=== PATIENT | male | born 1955 | race Caucasian/White ===

== ENCOUNTER 2018-03-18 10:14 | Emergency (ER) | payer OTHER, SELFPAY ==
[2018-03-18 10:23] VITALS: BP 129/75; PULSE 103; RESP 20; TEMP 37.1; O2SAT 96
[2018-03-18 11:54] LABS: Add Manual Diff / Slide Review NO; Basophils Percent Auto 0.2 % (0-2); Eosinophils Percent Auto 0.3 % (2-4); Hematocrit 37.9 % (41-53); Lymphocytes Percent Auto 8.9 % (25-40); Mean Corpuscular HGB Conc 34.3 % (30-36); Monocytes Percent Auto 15.1 % (3-14); Neutrophils Absolute Auto 5300 /uL (3000-5900); Neutrophils Percent Auto 75.5 % (50-75); Platelet Count 262 X10^3/uL (150-400); Red Blood Cell Count 3.95 X10^6/uL (4.5-5.9); Red Cell Distribution Width 13.6 % (11.6-14.8)
[2018-03-18 11:57] VITALS: BP 118/64; PULSE 85; RESP 16; TEMP 36.7; O2SAT 96
[2018-03-18 12:00] LABS: Bacteria Urine None Seen
[2018-03-18 12:07] LABS: Alanine Aminotransferase 137 IU/L (21-72); Albumin 3.8 g/dL (3.5-5.0); Albumin Globulin Ratio 1.2 (1.0-2.8); Alkaline Phosphatase 366 U/L (38-126); Aspartate Aminotransferase 128 IU/L (17-59); BUN Creatinine Ratio 17.8 (6-22); Bilirubin Total 3.7 mg/dL (0.2-1.3); Blood Urea Nitrogen 16 mg/dL (9-20); Calcium 9.2 mg/dL (8.4-10.2); Carbon Dioxide 31 mmol/L (22-32); Chloride 99 mmol/L (98-107); Estimated Glomerular Filt Rate > 60.0 mL/min (>60); Globulin 3.3 g/dL (1.7-4.1); Glucose 115 mg/dL (80-110); HEMOLYSIS < 15 (0-50); Sodium 141 mmol/L (137-145); Total Protein 7.1 g/dL (6.3-8.2)
[2018-03-18 12:12] LABS: RBC Urine 10-30/HPF (0-5/HPF)
[2018-03-18 12:13] LABS: Culture Indicated Urine Specimen Cultured; WBC Urine 5-10/HPF (0-5/HPF)
[2018-03-18 12:33] LABS: Prothrombin Time 91.6 SECONDS (10.1-12.7)
[2018-03-18 12:39] LABS: INR 8.1 (0.9-1.3)
--- NOTE | 2018-03-18 13:09 | ED_ITS ---
HPI - Recheck/Abnormal Lab/Rx General Chief Complaint: Recheck/Abnormal Lab/Rx Stated Complaint: INR OVER 8,PEEING BLOOD Time Seen by Provider: 03/18/18 13:09 Source: patient and family Mode of arrival: ambulatory Limitations: no limitations History of Present Illness HPI narrative: This is a 62-year-old gentleman who comes to the emergency department with complaint of elevated INR. Patient states Um that he had his INR checked last week it was slightly elevated but on recheck today was 8.1. Patient states that he did have a new change in his statin and was changed from pravastatin to atorvastatin in the last couple days or week. Otherwise no other new medication changes. He is on chemo for cancer which he gets regularly for the past 3 years. He also has had some mild headaches, no vision changes. No nausea or vomiting. No new GI or urinary issues. He has had a little bit of abdominal discomfort. He has also noticed a little bit of blood in his urine. No black or bloody stools. Patient normally has a standing order for INR checks at [facility]. He denies any chest pain or shortness of breath. He has not had any major changes with bruising or skin discoloration Related Data Home Medications Medication Instructions Recorded Confirmed nivolumab [Opdivo] 1 dose IV EVERY 2 WEEK #0 05/07/17 03/18/18 atorvastatin 80 mg PO BEDTIME 03/18/18 03/18/18 famotidine 20 mg PO BID 03/18/18 03/18/18 lisinopril 10 mg PO DAILY 03/18/18 03/18/18 kiskosdy-njn-NA-lycopen-lutein 1 tab PO QPM 03/18/18 03/18/18 [Centrum Silver] warfarin 6 mg PO DAILY 03/18/18 03/18/18 Allergies Allergy/AdvReac Type Severity Reaction Status Date / Time Znrggtn-Zgt-Zmt Reductase Allergy Unknown Unverified 10/07/17 12:01 Inhibitor [PKZTSOY-AEC-AYT REDUCTASE INHIBITOR] Review of Systems Review of Systems All systems reviewed & are unremarkable except as noted in HPI and below Constitutional Reports headache(s) (Mild), Reports poor appetite and Denies weakness ENT Ears, Nose, Mouth, and Throat: Reports headache(s) (Mild) Cardiovascular Denies chest pain, Denies irregular heart rhythm, Denies lightheadedness, Denies palpitations, Denies dyspnea, Denies dyspnea on exertion and Denies orthopnea Respiratory Denies cough, Denies dyspnea, Denies dyspnea on exertion and Denies wheezing Gastrointestinal Gastrointestinal: Reports abdominal pain, Denies melena, Reports bloating, Denies hematochezia, Denies change in bowel habits, Denies coffee ground emesis , Denies diarrhea, Denies nausea, Denies vomiting and Denies hematemesis Genitourinary Reports hematuria (No clot) Integumentary/Breasts Reports as per HPI and Denies bleeding lesions Neurologic Reports headache(s) (Mild), Denies focal weakness, Denies sensory deficit and Denies weakness Endocrine Denies palpitations Allergic/Immunologic Denies wheezing [facility] Social History Smoking Status: Current every day smoker Exam Initial Vital Signs Initial Vital Signs: Vital Signs Temperature 98.8 F 03/18/18 10:23 Pulse Rate 103 H 03/18/18 10:23 Respiratory Rate 20 03/18/18 10:23 Blood Pressure 129/75 03/18/18 10:23 Pulse Oximetry 96 03/18/18 10:23 Const General: cooperative and well developed Nutritional Appearance: thin Orientation: alert, awake, oriented x3 and not confused Eyes Conjunctivae: conjunctivae normal Chest Chest: normal inspection of the chest Resp Effort & Inspection: normal respiratory effort, able to speak in complete sentences, no respiratory distress and no use of accessory muscles Auscultation: clear to auscultation bilaterally, no rales, no rhonchi and no wheezes Cardio Rate: regular rate Rhythm: regular rhythm Heart Sounds: no click, no gallops, no murmurs and no rubs Pulses: normal peripheral pulses GI Inspection: normal to inspection, no abdominal wall ecchymosis and distended Palpation: soft, no hepatosplenomegaly, No firm, No guarding, No pulsatile mass , No rigid and No tender Auscultation: normal bowel sounds Skin General: ecchymosis (Patient has 2 very small bruises that are less than a cm in size on his hands. No other signs of bleeding.), No jaundice, No petechiae and No purpura Neuro General: alert, oriented x3, gait normal, no focal motor deficits and CN's II- XI intact bilaterally Cranial Nerves: PERRL and EOM intact bilaterally Cognition: normal cognition Speech: speech normal Motor: muscle tone normal throughout Course Orders Ordered: ED Orders 03/18/18 11:44 Complete Blood Count AUTO DIFF Stat Comprehensive Metabolic Panel Stat Prothrombin Time INR Stat Urine Culture Stat Urine Microscopic Stat 03/18/18 13:11 US abdomen complete Stat 03/18/18 13:45 CT head/brain wo con Stat Discontinued Medications Phytonadione (Mephyton) 5 mg PO NOW ONE Stop: 03/18/18 13:17 Last Admin: 03/18/18 13:26 Dose: 5 mg Vital Signs - 8 hr 03/18/18 14:45 Temperature 97.4 F L Pulse Rate 94 H Respiratory Rate 20 Blood Pressure 136/70 Pulse Oximetry 97 MDM - Recheck/Abnormal Lab/Rx Differential Diagnosis Likely warfarin-induced coagulopathy Lab Data Attestation: I reviewed the patient's lab results. Result diagrams: 03/18/18 11:44 03/18/18 11:44 Lab Results 03/18/18 03/18/18 03/18/18 Range/Units 11:44 11:44 11:44 WBC 7.0 (4.5-11.0) X10^3/uL RBC 3.95 L (4.5-5.9) X10^6/uL Hgb 13.0 L (13.5-17.5) g/dL Hct 37.9 L (41-53) % MCV 96.0 (80-100) fL MCH 33.0 (26-34) PG MCHC 34.3 (30-36) % RDW 13.6 (11.6-14.8) % Plt Count 262 (150-400) X10^3/uL Neut % (Auto) 75.5 H (50-75) % Lymph % (Auto) 8.9 L (25-40) % Dubois % (Auto) 15.1 H (3-14) % Eos % (Auto) 0.3 L (2-4) % Baso % (Auto) 0.2 (0-2) % Neut # (Auto) 5300 (6568-3276) /uL PT 91.6 H (10.1-12.7) SECONDS INR 8.1 H* (0.9-1.3) Sodium 141 (137-145) mmol/L Potassium 4.0 (3.4-5.1) mmol/L Chloride 99 (98-107) mmol/L Carbon Dioxide 31 (22-32) mmol/L BUN 16 (9-20) mg/dL Creatinine 0.90 (0.66-1.25) mg/dL Estimated GFR > 60.0 (>60) mL/min BUN/Creatinine Ratio 17.8 (6-22) Glucose 115 H (80-110) mg/dL Calcium 9.2 (8.4-10.2) mg/dL Total Bilirubin 3.7 H (0.2-1.3) mg/dL AST 128 H (17-59) IU/L ALT 137 H (21-72) IU/L Alkaline Phosphatase 366 H (38-126) U/L Total Protein 7.1 (6.3-8.2) g/dL Albumin 3.8 (3.5-5.0) g/dL Globulin 3.3 (1.7-4.1) g/dL Albumin/Globulin Ratio 1.2 (1.0-2.8) Urine RBC (0-5/HPF) Urine WBC (0-5/HPF) Urine Bacteria (None) Ur Culture Indicated? Micro UA Comment 03/18/18 Range/Units 11:44 WBC (4.5-11.0) X10^3/uL RBC (4.5-5.9) X10^6/uL Hgb (13.5-17.5) g/dL Hct (41-53) % MCV (80-100) fL MCH (26-34) PG MCHC (30-36) % RDW (11.6-14.8) % Plt Count (150-400) X10^3/uL Neut % (Auto) (50-75) % Lymph % (Auto) (25-40) % Dubois % (Auto) (3-14) % Eos % (Auto) (2-4) % Baso % (Auto) (0-2) % Neut # (Auto) (6457-2519) /uL PT (10.1-12.7) SECONDS INR (0.9-1.3) Sodium (137-145) mmol/L Potassium (3.4-5.1) mmol/L Chloride (98-107) mmol/L Carbon Dioxide (22-32) mmol/L BUN (9-20) mg/dL Creatinine (0.66-1.25) mg/dL Estimated GFR (>60) mL/min BUN/Creatinine Ratio (6-22) Glucose (80-110) mg/dL Calcium (8.4-10.2) mg/dL Total Bilirubin (0.2-1.3) mg/dL AST (17-59) IU/L ALT (21-72) IU/L Alkaline Phosphatase (38-126) U/L Total Protein (6.3-8.2) g/dL Albumin (3.5-5.0) g/dL Globulin (1.7-4.1) g/dL Albumin/Globulin Ratio (1.0-2.8) Urine RBC 10-30/hpf H (0-5/HPF) Urine WBC 5-10/hpf H (0-5/HPF) Urine Bacteria None seen (None) Ur Culture Indicated? Specimen cultured Micro UA Comment Not Reportable Imaging Data CT scan - head: Radiologist's impression: Patient: Dequan Rios MR#: [id number] : 1955 Acct:[id number] Age/Sex: 62 / M Date of Service: 03/18/18 Loc: ED Accession Number: [id number] Procedure: CT head/brain wo con Ordering Provider: Juliann Romero D.O. PROCEDURE: CT HEAD/BRAIN WO CON INDICATIONS: INR is 8, mild headaches TECHNIQUE: Noncontrast 4.5 mm thick angled axial sections acquired from the foramen magnum to the vertex, with coronal and sagittal reformats. For radiation dose reduction, the following was used: automated exposure control, adjustment of mA and/or kV according to patient size. COMPARISON: [facility], , MR HEAD WO/W CONTRAST, 11/12/2015, 9: 40 AM. FINDINGS: Image quality: Excellent. CSF spaces: Basal cisterns are patent. No extra-axial fluid collections. The ventricles are symmetric in size and shape. Brain: No intracranial bleeds or masses. Mild loss and encephalomalacia can be seen involving the left frontal lobe. There is cerebral volume loss for age, with resultant ventricular and sulcal prominence. There are periventricular and deep white matter chronic small vessel ischemic changes. There is intracranial internal carotid artery atherosclerosis. Skull and face: Left frontal craniotomy changes are seen, with plate and screw repair. Calvarium and visualized facial bones appear intact, without suspicious lesions. Sinuses: Visualized sinuses and mastoids are clear. IMPRESSION: No acute intracranial hemorrhage. Postoperative change of the left frontal lobe. Dictated by: Justin Beckett M.D. on 03/18/2018 at 13:49 Approved by: Justin Beckett M.D. on 03/18/2018 at 13:50 US - abdomen: Radiologist's impression: [address] [id number] Ultrasound Report Signed Patient: Dequan Rios MR#: [id number] : 1955 Acct:[id number] Age/Sex: 62 / M Date of Service: 03/18/18 Loc: ED Accession Number: [id number] Procedure: US abdomen complete Ordering Provider: Juliann Romero D.O. PROCEDURE: US ABDOMEN COMPLETE INDICATIONS: elevated liver enzymes, inr TECHNIQUE: Real-time scanning was performed of the abdominal and retroperitoneal organs, with image documentation. COMPARISON: [facility], CT, CHEST/ABD/PELVIS W/CON (PNL), 2015, 9:38. FINDINGS: Liver: Liver is normal in size and homogeneous in echotexture. Gallbladder: The gallbladder is normal in size without a lateral thickening or pericholecystic fluid. Biliary ducts: Intrahepatic bile ducts are non-dilated. Extrahepatic bile duct caliber measures 5 mm. Normal is 6-7 mm or less in diameter, or 10 mm or less post-cholecystectomy. Pancreas: Visualized portions of the pancreas are sonographically normal. Spleen: Spleen is normal in size and homogeneous in echotexture. Kidneys: Kidneys are normal in size and echotexture. Right kidney measures 11.9 cm long; left kidney measures 11.0 cm long. No hydronephrosis or shadowing nephrolithiasis. No solid masses. Aorta: Obscured by bowel gas Iliacs: Obscured by bowel gas IVC: Intrahepatic inferior vena cava is patent. Miscellaneous: No free abdominal fluid. IMPRESSION: 1. Unremarkable abdominal ultrasound. No cholelithiasis or evidence of acute cholecystitis. 2. No hydronephrosis. Dictated by: Gary Simmons M.D. on 03/18/2018 at 13:21 Approved by: Gary Simmons M.D. on 03/18/2018 at 13:23 MDM Narrative Medical decision making narrative: Patient's INR is 8, his LFTs are elevated. He has some hematuria on urinalysis but otherwise no karon signs of bleeding. He was complaining of some mild headaches and with his elevated INR he is at risk for spontaneous bleed so head CT was ordered. Patient also having a little bit of abdominal comfort discomfort and with his Um elevated LFTs ultrasound of the abdomen was ordered. Head CT shows no acute changes. Ultrasound shows no major changes also. Patient was given vitamin K, planned for him to have a repeat INR tomorrow as well as hold his warfarin. He has a standing order it would be hospital. Her of results will be to his primary care physician and he was asked to return here if he has any new signs of bleeding. Patient does have follow-up also through his oncologist who will be following his liver enzymes within the week. As well as his INR. Discharge Plan Departure Patient Disposition: Home Clinical Impression: Supratherapeutic INR, Hematuria, Elevated LFTs Discharge Date/Time: 03/18/18 14:46 Interventions: ED Discharge Assessment Last Done: 03/18/18 14:45 Activity Restrictions/Additional Instructions: Follow-up tomorrow for repeat INR level to make sure that it is going down. Do not take your warfarin until cleared by your physician. Your labs do show elevated LFTs and these need to be followed with repeat lab work. I would stop your new statin medication until you follow up with her primary care physician also. Return to the emergency department for new headaches, any signs of new bleeding , hemoptysis, black or bloody stools, increasing bleeding in her urine, new abdominal, chest pain or headache. New shortness of breath. Prescriptions: No Action nivolumab [Opdivo] 100 MG/10 ML solution 1 dose IV EVERY 2 WEEK Qty: 0 RF: 0 atorvastatin 80 mg Tablet 80 mg PO BEDTIME RF: 0 warfarin 6 mg Tablet 6 mg PO DAILY RF: 0 famotidine 20 mg Tablet 20 mg PO BID RF: 0 lisinopril 10 mg Tablet 10 mg PO DAILY RF: 0 xzfgbiaa-vit-TI-lycopen-lutein [Centrum Silver] 0.4-300-250 mg-mcg-mcg Tablet 1 tab PO QPM RF: 0
[2018-03-18] MEDS: PHYTONADIONE (VIT K1) 5 MG TABLET PO (13:26)
--- NOTE | 2018-03-18 13:45 | DI.CT.S_ITS ---
PROCEDURE: CT HEAD/BRAIN WO CON INDICATIONS: INR is 8, mild headaches TECHNIQUE: Noncontrast 4.5 mm thick angled axial sections acquired from the foramen magnum to the vertex, with coronal and sagittal reformats. For radiation dose reduction, the following was used: automated exposure control, adjustment of mA and/or kV according to patient size. COMPARISON: [facility], MR, MR HEAD WO/W CONTRAST, 11/12/2015, 9:40 AM. FINDINGS: Image quality: Excellent. CSF spaces: Basal cisterns are patent. No extra-axial fluid collections. The ventricles are symmetric in size and shape. Brain: No intracranial bleeds or masses. Mild loss and encephalomalacia can be seen involving the left frontal lobe. There is cerebral volume loss for age, with resultant ventricular and sulcal prominence. There are periventricular and deep white matter chronic small vessel ischemic changes. There is intracranial internal carotid artery atherosclerosis. Skull and face: Left frontal craniotomy changes are seen, with plate and screw repair. Calvarium and visualized facial bones appear intact, without suspicious lesions. Sinuses: Visualized sinuses and mastoids are clear. IMPRESSION: No acute intracranial hemorrhage. Postoperative change of the left frontal lobe. Dictated by: Justin Beckett M.D. on 03/18/2018 at 13:49 Approved by: Justin Beckett M.D. on 03/18/2018 at 13:50
[2018-03-18 14:45] VITALS: BP 136/70; PULSE 94; RESP 20; TEMP 36.3; O2SAT 97
== END 2018-03-18 14:46 | disposition home or self-care (01) ==
PROVIDERS: Emergency Provider Emergency Medicine; PCP Family Medicine
DX: R79.1 Abnormal coagulation profile (principal); R31.9 Hematuria, unspecified; R94.5 Abnormal results of liver function studies
CPT/HCPCS: 36415; 36591; 70450; 76700; 80053; 81015; 85025; 85610; 87086; 99282; 99284

== ENCOUNTER 2018-09-14 13:31 | Emergency (ER) | payer OTHER, SELFPAY ==
[2018-09-14 13:35] VITALS: BP 129/68; PULSE 95; RESP 18; TEMP 36.5; O2SAT 97
--- NOTE | 2018-09-14 15:08 | ED.UPPEXIN ---
HPI - Extremity Injury (Upper) <Stephany Boogie PA-C - Last Filed: 09/14/18 19:05> General Chief Complaint: Extremity Injury, Upper Stated Complaint: LT MIDDLE FINGER CUT/SLIVER Time Seen by Provider: 09/14/18 15:07 Source: patient Mode of arrival: ambulatory Limitations: no limitations History of Present Illness HPI narrative: This 63-year-old male comes to ED secondary to getting a large splinter in his left middle finger from a wooden rake he was using that slid down his hand. He states that he tried to pull it out but it just twisted into his finger. He states it is minimally tender, he can feel it under the skin. He denies any difficulty moving the finger, sensation is normal. He is up-to-date on tetanus vaccine. He states he and his were afraid to try to remove this at home because he is on warfarin. Related Data Home Medications Medication Instructions Recorded Confirmed Opdivo 1 dose IV EVERY 2 WEEK #0 05/07/17 09/14/18 famotidine 20 mg PO BID 03/18/18 09/14/18 lisinopril 10 mg PO DAILY 03/18/18 09/14/18 lvrkihin-hbh-TP-lycopen-lutein 1 tab PO QPM 03/18/18 09/14/18 [Centrum Silver] pravastatin 20 mg PO BEDTIME 09/14/18 09/14/18 warfarin 1 dose PO DAILY 09/14/18 09/14/18 Allergies Allergy/AdvReac Type Severity Reaction Status Date / Time Zjljpss-Syx-Sam Reductase Allergy Unknown Unverified 10/07/17 12:01 Inhibitor [IUEACIW-LOG-TJH REDUCTASE INHIBITOR] Review of Systems <Stephany Boogie PA-C - Last Filed: 09/14/18 19:05> Review of Systems ROS Unobtainable: All systems reviewed & are unremarkable except as noted in HPI and below PFSH <Stephany Boogie PA-C - Last Filed: 09/14/18 19:05> Medical History Lung cancer (Chronic) History of pulmonary embolism (Chronic) No pertinent family history (Chronic) Surgical History No pertinent past surgical history (Chronic) Social History Smoking Status: Current every day smoker Social History Smoking Status: Current every day smoker Exam <tSephany Boogie PA-C - Last Filed: 09/14/18 19:05> Narrative Exam Narrative: GENERAL APPEARANCE: Patient sitting comfortably, in no distress. LUNGS: Clear to auscultation bilaterally. HEART: Rate and rhythm regular without murmur, normal S1 and S2, no S3 or S4. DERMATOLOGIC: Left middle finger on the palmar surface near the IP crease there is part of a dark splinter visible on the medial side, on the lateral side there is a small scab. Remainder is palpable under the skin, measures about 1 cm in length. After local anesthesia and exploration, a wood fragment is removed in 3 pieces larges 9mm x 5mm. None remaining after wound explored NEUROVASCULAR: Left middle finger is warm and pink with brisk cap refill, sensation is grossly intact MUSCULOSKELETAL: Left middle finger full range of motion, strength is intact in all de guzman against resistance Initial Vital Signs Initial Vital Signs: Vital Signs Temperature 97.7 F 09/14/18 13:35 Pulse Rate 95 H 09/14/18 13:35 Respiratory Rate 18 09/14/18 13:35 Blood Pressure 129/68 09/14/18 13:35 Pulse Oximetry 97 09/14/18 13:35 <Giorgio Clark DO - Last Filed: 09/14/18 20:07> Initial Vital Signs Initial Vital Signs: Vital Signs Temperature 97.7 F 09/14/18 13:35 Pulse Rate 95 H 09/14/18 13:35 Respiratory Rate 18 09/14/18 13:35 Blood Pressure 129/68 09/14/18 13:35 Pulse Oximetry 97 09/14/18 13:35 Procedures <Stephany Boogie PA-C - Last Filed: 09/14/18 19:05> Foreign Body OTHER Time Out Performed: no Site: left and hand (middle finger) Description of foreign body: other (wood fragment) Sedation/Analgesia: other (1cc 1% plain lidocaine, local) Technique: removal with forceps Confirmed by:: direct visualization Complications: none Neurovascular: no change from pre-procedure Course <Stephany Boogie PA-C - Last Filed: 09/14/18 19:05> Vital Signs - 8 hr 09/14/18 13:35 09/14/18 16:41 Temperature 97.7 F Pulse Rate 95 H 91 H Respiratory Rate 18 23 Blood Pressure 129/68 Blood Pressure [Right Arm] 136/79 Pulse Oximetry 97 91 <Giorgio Clark DO - Last Filed: 09/14/18 20:07> Vital Signs - 8 hr 09/14/18 13:35 09/14/18 16:41 Temperature 97.7 F Pulse Rate 95 H 91 H Respiratory Rate 18 23 Blood Pressure 129/68 Blood Pressure [Right Arm] 136/79 Pulse Oximetry 97 91 Discharge Plan Departure Patient Disposition: Home Clinical Impression: Foreign body of finger of left hand Qualifiers: Encounter type: initial encounter Qualified Code(s): S60.459A - Superficial foreign body of unspecified finger, initial encounter Discharge Date/Time: 09/14/18 16:50 Interventions: ED Discharge Assessment Last Done: 09/14/18 17:02 Instructions: DI for Removal of Foreign Body From Skin Activity Restrictions/Additional Instructions: From what I can tell today we got all of this splinter out, I could not feel any remaining fragments. If you feel like there are any little pieces left later when the anesthetic wears off, it is okay to soak the finger in warm water as any little remaining pieces may come out. This is why we leave the incision open. Please recheck this with her PCP tomorrow morning, return or be seen there right away if any signs of infection as we talked about, i.e. redness/streaking, draining pus or fever. Best wishes to you with your continued cancer treatment (keep it up!!) and to you and your on your 10th anniversary! Prescriptions: No Action Opdivo 100 MG/10 ML solution 1 dose IV EVERY 2 WEEK Qty: 0 RF: 0 famotidine 20 mg Tablet 20 mg PO BID RF: 0 lisinopril 10 mg Tablet 10 mg PO DAILY RF: 0 Centrum Silver 0.4-300-250 mg-mcg-mcg Tablet 1 tab PO QPM RF: 0 warfarin 5 mg tablet 1 dose PO DAILY RF: 0 pravastatin 20 mg tablet 20 mg PO BEDTIME RF: 0 Referrals: Juan Jose Mitchell MD [Primary Care Provider] - <Giorgio Clark DO - Last Filed: 09/14/18 20:07> Cosign ED Attending Sonyaature Attestation: I was immediately available in the department for consultation. Documentation has been reviewed. I agree with assessment and plan.
[2018-09-14 16:41] VITALS: BP 136/79; PULSE 91; RESP 23; O2SAT 91
== END 2018-09-14 16:50 | disposition home or self-care (01) ==
PROVIDERS: Emergency Provider Internal Medicine; PCP Family Medicine
DX: S60.453A Superficial foreign body of left middle finger, initial encounter (principal)
CPT/HCPCS: 99282; 99283

== ENCOUNTER → 2019-04-14 08:50 | Outpatient (CLI) | payer OTHER, SELFPAY ==
--- NOTE | 2019-04-15 16:08 | PM.PFT.1 ---
Pulmonary Function Test Referral & Results Date Patient Seen: 04/14/19 Requesting provider: Gamaliel Hdez Results: The spirometry demonstrates an FVC of 3.92 L which is 73% of predicted. The FEV1 was measured at 1.23 L which is 30% of predicted. The FEV1/FVC ratio was 31 which is 41% of predicted Following the administration of bronchodilator there was an 18% improvement in FEV1 and a 77% improvement in FEF 25-75% Lung volumes show an SVC of 3.64 L which is 68% of predicted. The diffusing capacity was measured at 17.03 which is 45% of predicted. No hemoglobin value was provided, so no correction for potential anemia could be made, if appropriate. The maximum voluntary ventilation was reduced Interpretation: This study demonstrates severe obstructive lung disease with some evidence of benefit following bronchodilator particularly small airway flow as above There is also evidence of slight restrictive lung disease based on slight reduction in lung volumes There is also significant reduction in diffusing capacity suggesting significant disease of the capillary alveolar level
== END ==
PROVIDERS: PCP Family Medicine; Visit Provider Internal Medicine
DX: J43.2 Centrilobular emphysema (principal); J98.8 Other specified respiratory disorders; Z87.891 Personal history of nicotine dependence
CPT/HCPCS: 94060; 94726; 94729

== ENCOUNTER 2019-08-08 08:30 | Outpatient (RCR) | payer OTHER, SELFPAY ==
[2019-04-20 09:44] VITALS: BP 124/60; BP 128/60; RESP 14; O2SAT 98; BMI 25.0
--- NOTE | 2019-04-20 13:27 | PR.IEVALNOTE ---
Current Diagnoses Centrilobular emphysema (04/20/19) Past Medical History History of pulmonary embolism (Chronic) Lung cancer (Chronic) No pertinent family history (Chronic) Visit Care Team Role Provider Type Juan Jose Mitchell MD Primary Care Provider Non-Staff Specialty: Family Practice Address: [address], [address], [place], [address] Email: Gamaliel Hdez MD Attending Provider Non-Staff Specialty: Pulmonology Address: [address] [place] [address], [address], [place], [address] Email: Pulmonary Rehab Initial Evaluation SD Pulmonary Rehab Inital Assessment Start: 04/19/19 15:27 Freq: Status: Active Protocol: Document 04/20/19 09:44 THOMAS (Rec: 04/20/19 09:53 THOMAS [id number]) SD Exercise Assessment Dx: COPD-emphysema Comment Stage lung CA, Brain, bone and Lymph Ca. THN Primary Language CHILEAN Speech Impairment(s) none Grid Caster Required No Hearing Ability Normal Visual Impairment No Limitations Visual Difficutly None Visual Assist None Musculoskeletal Symptoms Back Pain Body Alignment Posture Forward Head,Relaxed Assistive Devices None History of Falling (Immediate or No Previous) Secondary Diagnosis (More Than 2 Medical Yes Diagnoses) Ambulatory Aid None/bed rest/nurse assist Gait/Transfer Normal/bedrest/immobile Mental Status Oriented to own ability Comment patient feels he will be able to exercise independently after attending Pulmonary Rehabilitation Comment not currently exercising SD Vital Signs Pulse Oximetry (91-100 %) 98 Nasal Cannula No Respiratory Rate (12-24 breaths/min) 14 Respiratory Effort Non-Labored Respiratory Depth Normal Assessment clear to auscultation no wheexe rhonchi slightly decreased Right Arm Blood Pressure (90/60-140/90 mmHg) 124/60 Blood Pressure Method Manual Cuff/Auscultation Left Arm Blood Pressure (90/60-140/90 mmHg) 128/60 Blood Pressure Method Manual Cuff/Auscultation SD Six Minute Walk Test Oxygen Delivery Method Room Air Respiratory Rate (breaths/min) 14 Pulse Rate (beats/min) 89 O2 Saturation by Pulse Oximetry (%) 96 Pulse Rate (beats/min) 98 Ambulation Distance (feet) 200 O2 Saturation by Pulse Oximetry (%) 96 Pulse Rate (beats/min) 112 Ambulation Distance (feet) 250 O2 Saturation by Pulse Oximetry (%) 95 Pulse Rate (beats/min) 107 Ambulatory Distance (feet) 200 O2 Saturation by Pulse Oximetry (%) 97 Pulse Rate (beats/min) 100 Ambulation Distance (feet) 300 O2 Saturation by Pulse Oximetry (%) 94 Pulse Rate (beats/min) 103 Ambulation Distance (feet) 300 O2 Saturation by Pulse Oximetry (%) 94 PUlse Rate (beats/min) 107 Ambulation Distance (feet) 300 O2 Saturation by Pulse Oximetry (%) 92 Pulse Rate (beats/min) 86 O2 Saturation by Pulse Oximetry (%) 96 Activity Tolerance Good Adverse Reactions Pulse Increase > 20 bpm, Increased Shortness of Breath Distance 1550 [place] RPE Scale 13 Oriented to RPE Scale Yes Dyspnea 3 Oriented to Dyspnea Scale Yes SD Exercise Goals Exercise Goals Progression of exercise training volume will result from increases in time, intensity, and frequency. Initial emphasis will be on increasing time Exercise Goals Demonstrate proper Pursed Lip Breathing technique Demonstrate paced breathing techniques (breath sequencing) with ADL's, stairs toni Demonstrate proper technique with respiratory medications DASI Number and Comment 5.59 Short Term Establish a independent exercise routine Skilled Nursing Improve muscle strength and stamina to be able to initiate day hiking 5-7 miles/day SD Nutrition Assessment PFT Date 04/14/19 Forced Vital Capacity (FVC) 3.92 73% Slow Vital Capacity (SVC) 3.64 68% Forced Exp. Volume/Forced Vital Cap 31 41% Ratio (FEV1/FVC Ratio) Forced Expiratory Volume in 1 sec. 1.23 30% Diffusing Capacity of the Lung (DLCO) 45% History of Diabetes No Admit Height 187.96 cm Admit Weight 88.451 kg Admit Body Mass Index (BMI) 25.0 SD Education Pre-Test Score 79% Tobacco Use Current Smoker Tobacco Product Used cigarettes Packs Per Day 45 Environmental/Occupational Exposure asbestos, paint fumes, smoke fumes, solvent fumes Use Yes Type beer Frequency occasionally Concerns None Interested in Smoking Cessation Yes Quit Date 05/29 Education Topics Breathing Retraining Discussed Education Requirements on Yes Intake SD Psychosocial Initial Assess HADS Score 5 HADS Score 3 Marital Status Referral Needed No Physician Comment Ready for Pulmonary Rehabilitation Cooperative,Motivated
--- NOTE | 2019-05-18 15:45 | PR.REVALNOTE ---
Current Diagnoses Centrilobular emphysema (05/18/19) Past Medical History History of pulmonary embolism (Chronic) Lung cancer (Chronic) No pertinent family history (Chronic) Visit Care Team Role Provider Type Juan Jose Mitchell MD Primary Care Provider Non-Staff Specialty: Family Practice Address: [address] [place], [address] Email: Gamaliel Hdez MD Attending Provider Non-Staff Specialty: Pulmonology Address: [address] [place] [address], [address], [address] Email: Pulmonary Rehab Re-Evaluation KS Pulmonary Rehab. Re-Assessment Start: 04/19/19 15:27 Freq: Status: Active Protocol: Document 05/18/19 15:41 THOMAS (Rec: 05/18/19 15:45 THOMAS [id number]) KS Exercise Re-Assessment New Session Number 2-14 Type Treadmill,PINKY METs (resistance level) 3.26TM 3.40 Pinky % Improvement 28%TM 9%Pinky Interval Training Yes: 6.90mets Pinky Shortness of Breath with Exercise Yes Desaturation with Exercise No Free Weight Yes: 5# 12r 2s Band Level Yes: #4 KS Nutrition Re-Assessment Goals Pt will continue to learn tips KS Education Re-Assessment Tobacco Use Yes Tobacco Product/Comment pt smoked 10-15 cigarettes a day at start of KS has weaned down to 5-6 per day. Patient is using Chantix Interventions Ask,Advise,Assist,Risk,Rewards ,Roadblocks Topics Normal Anatomy and Physiology, Breathing Retraining,Benefits of Exercise Goals Pt will Complete Smoking Secession ,Pt will Master PLB and Diaphragmatic Breathing,Pt will Master Energy Conserving Techniques,Pt will learn exercise safety,Pt will continue ED topics until completion KS Psychosocial Re-Assessment Patient in Class Regularly Yes Interventions Pt attending class regularly Goals Pt will continue to attend classes 3x wk,Participate in social and educational discussion,Received emotional support from family/friends
--- NOTE | 2019-06-15 10:59 | PR.REVALNOTE ---
Current Diagnoses Centrilobular emphysema (06/15/19) Past Medical History History of pulmonary embolism (Chronic) Lung cancer (Chronic) No pertinent family history (Chronic) Visit Care Team Role Provider Type Juan Jose Mitchell MD Primary Care Provider Non-Staff Specialty: Family Practice Address: [address] [place], [address] Email: Gamaliel Hdez MD Attending Provider Non-Staff Specialty: Pulmonology Address: [address] [place] [address], [address], [address] Email: Pulmonary Rehab Re-Evaluation MD Pulmonary Rehab. Re-Assessment Start: 04/19/19 15:27 Freq: Status: Active Protocol: Document 05/18/19 15:41 JWS (Rec: 05/18/19 15:45 JWS [id number]) MD Exercise Re-Assessment New Session Number 2-14 Type Treadmill,PINKY METs (resistance level) 3.26TM 3.40 Pinky % Improvement 28%TM 9%Pinky Interval Training Yes: 6.90mets Pinky Shortness of Breath with Exercise Yes Desaturation with Exercise No Free Weight Yes: 5# 12r 2s Band Level Yes: #4 MD Nutrition Re-Assessment Goals Pt will continue to learn tips MD Education Re-Assessment Tobacco Use Yes Tobacco Product/Comment pt smoked 10-15 cigarettes a day at statrt of MD has weaned down to 5-6 per day. Patient is using Chantix Interventions Ask,Advise,Assist,Risk,Rewards ,Roadblocks Topics Normal Anatomy and Physiology, Breathing Retraining,Benefits of Exercise Goals Pt will Complete Smoking Sessation,Pt will Master PLB and Diaphragmatic Breating,Pt will Master Energy Conserving Techniques,Pt will learn exercise safety,Pt will continue ED topics until completion MD Psychosocial Re-Assessment Patient in Class Regularly Yes Interventions Pt attending class regularly Goals Pt will continue to attend classes 3x wk,Participate in social and educational discussion,Received emotional support from family/friends Document 06/06/19 10:44 THOMAS (Rec: 06/06/19 11:02 JWS [id number]) MD Exercise Re-Assessment New Session Number 14-20 Type Treadmill,PINKY METs (resistance level) 3.60TM 4.91REX % Improvement 10%TM 44% PINKY Interval Training Yes: 7.40 PINKY Shortness of Breath with Exercise Yes Desaturation with Exercise No Free Weight Yes: 5# 12r 2s Band Level Yes: #4 band MD Education Re-Assessment Tobacco Use No Interventions Ask,Advise,Assess,Assist,Risk, Rewards Intervention Comment Patient is 2 weeks quit 2018 Pt states he is successfully resisting urges at this point Topics Normal Anatomy and Physiology, Chronic Lung Disease,Benefits of Exercise,Eating Right, Coping with Chronic Lung Disease Goals Pt will Complete Smoking Sessation,Pt will Master PLB and Diaphragmatic Breating,Pt will Master Energy Conserving Techniques,Pt will learn exercise safety,Pt will continue ED topics until completion MD Psychosocial Re-Assessment Patient in Class Regularly Yes Interventions Pt attending class regularly Goals Pt will continue to attend classes 3x wk,Participate in social and educational discussion,Received emotional support from family/friends Document 06/15/19 10:46 Anthony (Rec: 06/15/19 10:58 RUST [id number]) MD Exercise Re-Assessment New Session Number 14-20 Type Treadmill,PINKY METs (resistance level) TM3.60 8.00 PINKY % Improvement TM 0% PINKY 8% Interval Training Yes Shortness of Breath with Exercise Yes Desaturation with Exercise No Free Weight Yes: 5# 12R 2S Band Level Yes: #4 Intervention Inititate independent exercise -no progress MD Education Re-Assessment Interventions Ask,Advise,Risk,Rewards, Roadblocks,Repeat Intervention Comment Pt is two weeks quit smoking Topics Normal Anatomy and Physiology, Chronic Lung Disease,Breathing Retraining,Benefits of Exercise,Activities of daily living/Leisure Activities, Eating Right Goals Pt will Complete Smoking Sessation,Pt will Master PLB and Diaphragmatic Breathing,Pt will Master Energy Conserving Techniques,Pt will learn exercise safety,Pt will continue ED topics until completion MD Psychosocial Re-Assessment Patient in Class Regularly Yes Interventions Pt attending class regularly Goals Pt will continue to attend classes 3x wk,Participate in social and educational discussion,Received emotional support from family/friends
--- NOTE | 2019-07-11 10:49 | PR.REVALNOTE ---
Current Diagnoses Centrilobular emphysema (07/11/19) Past Medical History History of pulmonary embolism (Chronic) Lung cancer (Chronic) No pertinent family history (Chronic) Visit Care Team Role Provider Type Juan Jose Mitchell MD Primary Care Provider Non-Staff Specialty: Family Practice Address: [address] [place], [address] Email: Gamaliel Hdez MD Attending Provider Non-Staff Specialty: Pulmonology Address: [address] [place] [address], [address], [address] Email: Pulmonary Rehab Re-Evaluation DC Pulmonary Rehab. Re-Assessment Start: 04/19/19 15:27 Freq: Status: Active Protocol: Document 05/18/19 15:41 JWS (Rec: 05/18/19 15:45 JWS [id number]) DC Exercise Re-Assessment New Session Number 2-14 Type Treadmill,PINKY METs (resistance level) 3.26TM 3.40 Pinky % Improvement 28%TM 9%Pinky Interval Training Yes: 6.90mets Pinky Shortness of Breath with Exercise Yes Desaturation with Exercise No Free Weight Yes: 5# 12r 2s Band Level Yes: #4 DC Nutrition Re-Assessment Goals Pt will continue to learn tips DC Education Re-Assessment Tobacco Use Yes Tobacco Product/Comment pt smoked 10-15 cigarettes a day at statrt of DC has weaned down to 5-6 per day. Patient is using Chantix Interventions Ask,Advise,Assist,Risk,Rewards ,Roadblocks Topics Normal Anatomy and Physiology, Breathing Retraining,Benefits of Exercise Goals Pt will Complete Smoking Sessation,Pt will Master PLB and Diaphragmatic Breating,Pt will Master Energy Conserving Techniques,Pt will learn exercise safety,Pt will continue ED topics until completion DC Psychosocial Re-Assessment Patient in Class Regularly Yes Interventions Pt attending class regularly Goals Pt will continue to attend classes 3x wk,Participate in social and educational discussion,Received emotional support from family/friends Document 06/06/19 10:44 THOMAS (Rec: 06/06/19 11:02 JWS [id number]) DC Exercise Re-Assessment New Session Number 14-20 Type Treadmill,PINKY METs (resistance level) 3.60TM 4.91REX % Improvement 10%TM 44% PINKY Interval Training Yes: 7.40 PINKY Shortness of Breath with Exercise Yes Desaturation with Exercise No Free Weight Yes: 5# 12r 2s Band Level Yes: #4 band DC Education Re-Assessment Tobacco Use No Interventions Ask,Advise,Assess,Assist,Risk, Rewards Intervention Comment Patient is 2 weeks quit 2018 Pt states he is successfully resisting urges at this point Topics Normal Anatomy and Physiology, Chronic Lung Disease,Benefits of Exercise,Eating Right, Coping with Chronic Lung Disease Goals Pt will Complete Smoking Sessation,Pt will Master PLB and Diaphragmatic Breating,Pt will Master Energy Conserving Techniques,Pt will learn exercise safety,Pt will continue ED topics until completion DC Psychosocial Re-Assessment Patient in Class Regularly Yes Interventions Pt attending class regularly Goals Pt will continue to attend classes 3x wk,Participate in social and educational discussion,Received emotional support from family/friends Document 06/15/19 10:46 [facility] (Rec: 06/15/19 10:58 [facility] [id number]) DC Exercise Re-Assessment New Session Number 14-20 Type Treadmill,PINKY METs (resistance level) TM3.60 8.00 PINKY % Improvement TM 0% PINKY 8% Interval Training Yes Shortness of Breath with Exercise Yes Desaturation with Exercise No Free Weight Yes: 5# 12R 2S Band Level Yes: #4 Intervention Inititate independent exercise -no progress DC Education Re-Assessment Interventions Ask,Advise,Risk,Rewards, Roadblocks,Repeat Intervention Comment Pt is two weeks quit smoking Topics Normal Anatomy and Physiology, Chronic Lung Disease,Breathing Retraining,Benefits of Exercise,Activities of daily living/Leisure Activities, Eating Right Goals Pt will Complete Smoking cessation,Pt will Master PLB and Diaphragmatic Breathing,Pt will Master Energy Conserving Techniques,Pt will learn exercise safety,Pt will continue ED topics until completion DC Psychosocial Re-Assessment Patient in Class Regularly Yes Interventions Pt attending class regularly Goals Pt will continue to attend classes 3x wk,Participate in social and educational discussion,Received emotional support from family/friends Document 07/11/19 10:26 Anthony (Rec: 07/11/19 10:49 [facility] [id number]) DC Exercise Re-Assessment New Session Number 20-26 Type Treadmill,PINKY,Rower METs (resistance level) 5.14TM 4.91rex 5.30 rwr % Improvement 42%tm Interval Training Yes: 8.0REX Shortness of Breath with Exercise Yes Desaturation with Exercise No Free Weight Yes: 8# 12r 2s Band Level Yes: #5 Toward Target Goals patient continues to increase workloads-showing progress DC Education Re-Assessment Tobacco Use No Interventions Ask,Advise,Risk,Rewards,Repeat Intervention Comment patient is now 6 weeks quit and is successfully resisting psycho-social desires associated with smoking Topics Normal Anatomy and Physiology, Chronic Lung Disease, Description and Interpretation Medical Tests,Breathing Retraining,Medication,Benefits of Exercise,Activities of daily living/Leisure Activities,Eating Right Goals Pt will Complete Smoking Cessation,Pt will Master PLB and Diaphragmatic Breathing,Pt will Master Energy Conserving Techniques,Pt will learn exercise safety,Pt will continue ED topics until completion DC Psychosocial Re-Assessment Patient in Class Regularly Yes Progress Towards Goal patient has experienced cold symptoms that has prevented full participation in DC sessions Goals Pt will continue to attend classes 3x wk,Participate in social and educational discussion,Received emotional support from family/friends
--- NOTE | 2019-08-08 13:38 | PR.DCNOTE ---
Current Diagnoses Centrilobular emphysema (08/08/19) Past Medical History History of pulmonary embolism (Chronic) Lung cancer (Chronic) No pertinent family history (Chronic) Visit Care Team Role Provider Type Juan Jose Mitchell MD Primary Care Provider Non-Staff Specialty: Family Practice Address: [address] [facility], [place], [address] Email: Gamaliel Hdez MD Attending Provider Non-Staff Specialty: Pulmonology Address: [address] [place] [address], [address], [place], [address] Email: Pulmonary Rehab Discharge Evaluation NM Education Start: 04/19/19 15:27 Freq: Status: Active Protocol: Document 07/18/19 15:29 S (Rec: 07/18/19 15:29 [facility] [id number]) NM Education Education mets and importance of exercise and effects of deconditioning NM Pulmonary Rehab. DC Assessment Start: 04/19/19 15:27 Freq: Status: Active Protocol: Document 08/08/19 13:23 JWS (Rec: 08/08/19 13:38 [facility] [id number]) NM Exercise Discharge Assess Session 9 Type Treadmill,PINKY METs (resistance level) 5.67TM 4.25REX % Improvement 73%TM 25%PINKY Interval Training Yes: 13.00REX 7.16TM Shortness of Breath with Exercise Yes Desaturation with Exercise No Free Weight Yes: 12# 2S 12R Band Level Yes: #6 Toward Target Goals AEROBIC ACTIVITY-increased participation in physical activities, including domestic and recreational activities Improved functional capacity with increased strength and endurance increased MET tolerance Participates in independent purposeful exercise NM Education DC Assessment % Improvement 9% Tobacco Use No Education Topics Normal Pulmonary Anatomy and Physiology,Chronic Lung Disease,Description and Interpretation of Medical Tests,Breathing Retraining, Bronchial Hygiene,Medications, Benefits of Exercise, Activities of Daily Living/ Leisure Activities,Eating Right,Irritant Avoidance/ Prevention of Respiratory Infection,Coping with Chronic Lung Disease,Oxygen How and When,Asthma Education Target Goals Pt was educated on home exercise prescription,Pt educated on home resistance training,Pt educated on oxygen therapy for home,PT educated on medication's taken at home, Pt educated on PBL and relaxation techniques NM Psychosocial DC Assessment HADS Depression Score 4 HADS Anxiety Score 2 [facility]/Other Yes Referral Needed No NM Six Minute Walk Test Oxygen Delivery Method Room Air Respiratory Rate (breaths/min) 12 Pulse Rate (beats/min) 93 O2 Saturation by Pulse Oximetry (%) 96 Pulse Rate (beats/min) 96 Ambulation Distance (feet) 250 O2 Saturation by Pulse Oximetry (%) 96 Pulse Rate (beats/min) 91 Ambulation Distance (feet) 300 O2 Saturation by Pulse Oximetry (%) 93 Pulse Rate (beats/min) 112 Ambulatory Distance (feet) 300 O2 Saturation by Pulse Oximetry (%) 93 Pulse Rate (beats/min) 115 Ambulation Distance (feet) 250 O2 Saturation by Pulse Oximetry (%) 92 Pulse Rate (beats/min) 110 Ambulation Distance (feet) 300 O2 Saturation by Pulse Oximetry (%) 90 PUlse Rate (beats/min) 121 Ambulation Distance (feet) 350 O2 Saturation by Pulse Oximetry (%) 91 Respiratory Rate (breaths/min) 14 Pulse Rate (beats/min) 85 O2 Saturation by Pulse Oximetry (%) 97 Activity Tolerance Good Adverse Reactions Increased Shortness of Breath Distance 1850.00 [place]ahira RPE Scale 13 Oriented to RPE Scale Yes Dyspnea 3 Oriented to Dyspnea Scale Yes
== END 2019-08-23 08:02 ==
LOC: PUL 08:30
PROVIDERS: PCP Family Medicine; Visit Provider Internal Medicine
DX: J43.2 Centrilobular emphysema (principal)
CPT/HCPCS: G0424

== ENCOUNTER 2023-05-01 17:04 | Emergency (ER) | payer OTHER, SELFPAY ==
[2019-04-20 09:44] VITALS: BMI 25.0
[2023-05-01] VITALS (29 sets, daily range): BP systolic 84–154; BP diastolic 55–96; PULSE 109–135; RESP 12–40; TEMP 31–35.8; O2SAT 93–100
--- NOTE | 2023-05-01 17:11 | DI.RAD.S_ITS ---
PROCEDURE: XR CHEST 1V INDICATIONS: short of breath TECHNIQUE: One view of the chest was acquired. COMPARISON: Outside Film, CT, CT CHEST ABDOMEN PELVIS WITH CONTRAST, 10/08/2022, 10:07. [facility], , CHEST 1 VIEW, 05/07/2017, 13:04. FINDINGS: Surgical changes and devices: Numerous wires can be seen overlying the patient. Lungs and pleura: Left perihilar density is seen, which is attributed to posttreatment changes. No focal infiltrates are seen. The lungs are hyperexpanded. Mediastinum: Mediastinal contours appear normal. Heart size is normal. Atherosclerotic calcification of the aortic arch is noted. Bones and chest wall: No suspicious bony lesions. Overlying soft tissues appear unremarkable. IMPRESSION: The lungs are hyperexpanded. No focal infiltrate is seen. Apparent posttreatment changes seen involving the left perihilar region. Dictated by: Justin Beckett M.D. on 05/01/2023 at 16:52 Approved by: Justin Beckett M.D. on 05/01/2023 at 16:53
[2023-05-01] MEDS: ALBUTEROL 2.5 MG/3 ML NEB (ADULT) 20 MG INH (17:15)
[2023-05-01 17:26] LABS: Add Manual Diff / Slide Review NO; Basophils Absolute Auto 0 /uL (0-100); Basophils Percent Auto 0.3 % (0-2); Eosinophils Absolute Auto 100 /uL (0-450); Eosinophils Percent Auto 1.5 % (2-4); Hematocrit 43.5 % (41-53); Hemoglobin 14.9 g/dL (13.5-17.5); Lymphocytes Absolute Auto 3700 /uL (1100-4500); Lymphocytes Percent Auto 39.9 % (25-40); Mean Corpuscular HGB Conc 34.3 % (30-36); Mean Corpuscular Hemoglobin 32.1 PG (26-34); Mean Corpuscular Volume 93.5 fL (80-100); Monocytes Absolute Auto 600 /uL (0-900); Monocytes Percent Auto 6.9 % (3-14); Neutrophils Absolute Auto 4700 /uL (1500-7000); Neutrophils Percent Auto 51.4 % (50-75); Platelet Count 232 X10^3/uL (150-400); Red Blood Cell Count 4.65 X10^6/uL (4.5-5.9); Red Cell Distribution Width 13.4 % (11.6-14.8); White Blood Cell Count 9.2 X10^3/uL (4.5-11.0)
[2023-05-01 17:39] LABS: D Dimer 2074 ng/ml (<500)
[2023-05-01 17:44] LABS: Alanine Aminotransferase 28 IU/L (<50); Albumin 4.2 g/dL (3.5-5.0); Albumin Globulin Ratio 1.4 (1.0-2.8); Alkaline Phosphatase 82 U/L (38-126); Aspartate Aminotransferase 40 IU/L (17-59); BUN Creatinine Ratio 10.1 (6-22); Bilirubin Total 0.5 mg/dL (0.2-1.3); Blood Urea Nitrogen 11 mg/dL (9-20); Calcium 9.2 mg/dL (8.4-10.2); Carbon Dioxide 27 mmol/L (22-32); Chloride 101 mmol/L (98-107); Creatine Kinase 121 U/L (55-170); Estimated Glomerular Filt Rate > 60 mL/min (>60); Globulin 2.9 g/dL (1.7-4.1); Glucose 285 mg/dL (80-110); HEMOLYSIS < 15 (0-50); Lipase 83 U/L (23-300); Potassium 4.7 mmol/L (3.4-5.1); Sodium 136 mmol/L (137-145); Total Protein 7.1 g/dL (6.3-8.2)
[2023-05-01 17:54] LABS: Lactate (Lactic Acid) 1.7 mmol/L (0.7-2.1)
[2023-05-01 17:55] LABS: NT-proBNP (BNP-Adult 18+) 497 pg/mL (<125); Troponin I 0.016 ng/mL (0.01-0.034)
[2023-05-01] MEDS: SODIUM CHLORIDE 0.9% 1,000 ML 1000 ML IV (17:57)
--- NOTE | 2023-05-01 18:11 | DI.CT.S_ITS ---
PROCEDURE: CT ANGIO CHEST PE PROTOCOL INDICATIONS: Chest pain, shortness of breath, tachycardia TECHNIQUE: After the administration of intravenous contrast, 2 mm thick sections acquired from the pulmonary apices to the posterior costophrenic angles. 3-dimensional maximum intensity projection (MIP) coronal and sagittal reformats were then acquired through the thorax. For radiation dose reduction, the following was used: automated exposure control, adjustment of mA and/or kV according to patient size. COMPARISON: None. FINDINGS: Image quality: Excellent. Pulmonary arteries: Pulmonary arteries are normal in size, and demonstrate no intraluminal filling defects to suggest central pulmonary embolism. Lungs and pleura: Moderately severe emphysematous changes. Posteromedial left lower lobe consolidative change. Minor dependent alveolar opacity in the right posterior costophrenic sulcus. Right medial upper lobe spiculated9 soft tissue nodule. Small scar-like area in the posterolateral left right upper lobe, and spiculated nodule in the lateral right upper lobe, 5/87. No pleural effusion or pneumothorax. Mediastinum: Heart size is normal with small to moderate size pericardial effusion, similar compared to prior. Normal caliber aorta and great vessels. No adenopathy. Normal esophagus without hiatal hernia. Bones and chest wall: No suspicious bony lesions. Ribs and thoracic spine appear intact throughout. Thyroid gland has a normal CT appearance. No axillary or supraclavicular adenopathy. Abdomen: Visualized upper abdominal solid organs appear normal in the early arterial phase of enhancement. IMPRESSION: 1. No pulmonary embolus. 2. Moderately severe emphysema. 3. Chronic posteromedial left lower lobe consolidation suggestive of atelectasis although underlying infection or neoplasm is not excluded. 4. Right lateral upper lobe spiculated mass is new and consistent with patient's known new lung cancer. 5. Mildly increased right posterior costophrenic sulcus alveolar opacity, probably atelectasis or gravitational change, though underlying infection is not excluded. Dictated by: Noemi Larsen M.D. on 05/01/2023 at 20:41 Approved by: Noemi Larsen M.D. on 05/01/2023 at 20:49
[2023-05-01 18:18] LABS: Adenovirus Not Detected (Not Detect); B. parapertussis Not Detected (Not Detecte); Bordetella pertussis Not Detected (Not Detect); Chlamydophila pneumoniae Not Detected (Not Detect); Coronavirus 229E Not Detected (Not Detect); Coronavirus HKU1 Not Detected (Not Detect); Coronavirus NL 63 Not Detected (Not Detect); Coronavirus OC43 Not Detected (Not Detect); Human Metapneumovirus Not Detected (Not Detect); Human Rhinovirus/Enterovirus Not Detected (Not Detect); Influenza A Not Detected (Not Detect); Influenza B Not Detected (Not Detect); Mycoplasma pneumoniae Not Detected (Not Detect); Parainfluenza Virus 1 Not Detected (Not Detect); Parainfluenza Virus 2 Not Detected (Not Detect); Parainfluenza Virus 3 Not Detected (Not Detect); Parainfluenza Virus 4 Not Detected (Not Detect); Respiratory Syncytial Virus Not Detected (Not Detect); SARS- CoV-2 Not Detected (Not Detecte)
--- NOTE | 2023-05-01 18:40 | RT ---
cont neb tx finished, pt states feels 100% better. no distress noted
--- NOTE | 2023-05-01 21:03 | ED_ITS ---
HPI - General Adult General Chief complaint: Shortness of Breath/Dyspnea Stated complaint: COPD difficulty breathing Time Seen by Provider: 05/01/23 17:10 Source: patient and EMS Mode of arrival: EMS History of Present Illness HPI narrative: Patient is a 67-year-old male. Has a history of COPD. Has also had a distant history of lung cancer. He is on oxygen at home ranges anywhere from 2-3 L. he states that this evening he had a fairly sudden exacerbation of his COPD. Became very short of breath. This made him very anxious. He thinks that it was a environmental trigger. By the time I evaluated him he had received nebulizer treatments and also spent a short amount of time on a BiPAP. He states he is feeling completely back to normal. Prior to arrival he received magnesium and steroids and albuterol. He denies any fevers. No change in any of his cough. He did recently have a CT scan and an MRI which showed that potentially his lung cancer had returned and potentially even has a metastasis to the brain. He is being followed for this by specialists. No lower extremity swelling. No chest pain, abdominal pain, or lower extremity swelling. Related Data Home Medications Medication Instructions Recorded Confirmed nivolumab 100 mg/10 mL intravenous 1 dose IV EVERY 2 WEEK ##0 05/07/17 09/14/18 solution (Opdivo) famotidine 20 mg tablet 20 mg PO BID 03/18/18 09/14/18 lisinopril 10 mg tablet 10 mg PO DAILY 03/18/18 09/14/18 ijrgpsfs-[id number] acid 0.4 1 tab PO QPM 03/18/18 09/14/18 mg-lycopene 300 mcg-lutein 250 mcg tablet (Centrum Silver) pravastatin 20 mg tablet 20 mg PO BEDTIME 09/14/18 09/14/18 warfarin 5 mg tablet 1 dose PO DAILY 09/14/18 09/14/18 Allergies Allergy/AdvReac Type Severity Reaction Status Date / Time [id number] Reductase Allergy Unknown Unverified 10/07/17 12:01 Inhibitor [[id number] REDUCTASE INHIBITOR] Patient History Medical History No pertinent family history History of pulmonary embolism Lung cancer Surgical History (Updated 09/14/18 @ 15:27 by Stephany Fishfader, PA-C) No pertinent past surgical history Social History Smoking Status: Current every day smoker Smoking Status: Current every day smoker Substance Use Type: does not use Exam Initial Vital Signs Initial Vital Signs: Vital Signs Fraction of Inspired Oxygen 80 05/01/23 17:05 Const General: cooperative and No acute distress HENMT Head: normal to inspection and normocephalic Resp Effort & Inspection: not labored, no respiratory distress and tachypneic Auscultation: clear to auscultation bilaterally Cardio Rate: tachycardic Rhythm: regular rhythm GI Inspection: normal to inspection and non-distended Skin General: no rashes or lesions noted Neuro General: patient alert, patient awake, patient oriented x3 and moves all extremities Extrem General: No edema Course Orders Ordered: Discontinued Medications Albuterol (Albuterol 2.5 Mg/3 Ml Neb (Adult)) 20 mg INH NOW ONE Stop: 05/01/23 17:13 Last Admin: 05/01/23 17:15 Dose: 20 mg Documented By: SAMEERA Sodium Chloride (Normal Saline 0.9%) 1,000 mls @ 150 mls/hr IV CONT ANIKA Last Admin: 05/01/23 17:57 Dose: Not Given Documented By: TEAGAN Sodium Chloride (Normal Saline 0.9%) 1,000 mls @ 1,000 mls/hr IV BOLUS ONE Stop: 05/01/23 18:48 Last Infusion: 05/01/23 19:17 Dose: Infused Documented By: Admin: 05/01/23 17:57 Dose: 1,000 mls/hr Documented By: TEAGAN Vital Signs Vital signs: Vital Signs - 8 hr 05/01/23 20:00 05/01/23 20:00 05/01/23 20:15 Pulse Rate 117 H 115 H Respiratory Rate 22 15 Blood Pressure 110/61 Pulse Oximetry 96 95 Oxygen Delivery Method Oxygen Flow Rate 05/01/23 20:15 05/01/23 20:30 05/01/23 20:30 Pulse Rate 115 H Respiratory Rate 16 Blood Pressure 114/63 111/61 Pulse Oximetry 94 Oxygen Delivery Method Oxygen Flow Rate 05/01/23 20:45 05/01/23 20:45 05/01/23 21:00 Pulse Rate 115 H 122 H Respiratory Rate 14 16 Blood Pressure 107/57 L Pulse Oximetry 94 93 Oxygen Delivery Method Nasal Cannula Oxygen Flow Rate 3 05/01/23 21:00 05/01/23 21:20 05/01/23 21:20 Pulse Rate 130 H Respiratory Rate 29 H Blood Pressure 140/70 154/71 H Pulse Oximetry 95 Oxygen Delivery Method Oxygen Flow Rate 05/01/23 21:30 05/01/23 22:32 Pulse Rate 125 H 121 H Respiratory Rate 27 H 22 Blood Pressure 133/73 Pulse Oximetry 97 97 Oxygen Delivery Method Nasal Cannula Oxygen Flow Rate 3 Medical Decision Making Medical Records Medical records reviewed: Yes I reviewed the patient's medical records. Lab Data Lab results reviewed: Yes I reviewed the patient's lab results. 05/01/23 17:10 05/01/23 17:10 Labs: Lab Results 05/01/23 05/01/23 Range/Units 17:10 17:18 WBC 9.2 (4.5-11.0) X10^3/uL RBC 4.65 (4.5-5.9) X10^6/uL Hgb 14.9 (13.5-17.5) g/dL Hct 43.5 (41-53) % MCV 93.5 (80-100) fL MCH 32.1 (26-34) PG MCHC 34.3 (30-36) % RDW 13.4 (11.6-14.8) % Plt Count 232 (150-400) X10^3/uL Neut % (Auto) 51.4 (50-75) % Lymph % (Auto) 39.9 (25-40) % [place] % (Auto) 6.9 (3-14) % Eos % (Auto) 1.5 L (2-4) % Baso % (Auto) 0.3 (0-2) % Neut # (Auto) 4700 (6363-3116) /uL Lymph # (Auto) 3700 (1612-9629) /uL [place] # (Auto) 600 (0-900) /uL Eos # (Auto) 100 (0-450) /uL Baso # (Auto) 0 (0-100) /uL D-Dimer 2074 H (<500) ng/ml Sodium 136 L (137-145) mmol/L Potassium 4.7 (3.4-5.1) mmol/L Chloride 101 (98-107) mmol/L Carbon Dioxide 27 (22-32) mmol/L BUN 11 (9-20) mg/dL Creatinine 1.09 (0.66-1.25) mg/dL Estimated GFR > 60 (>60) mL/min BUN/Creatinine Ratio 10.1 (6-22) Glucose 285 H (80-110) mg/dL Lactate 1.7 (0.7-2.1) mmol/L Calcium 9.2 (8.4-10.2) mg/dL Total Bilirubin 0.5 (0.2-1.3) mg/dL AST 40 (17-59) IU/L ALT 28 (<50) IU/L Alkaline Phosphatase 82 (38-126) U/L Total Creatine Kinase 121 (55-170) U/L Troponin I 0.016 (0.01-0.034) ng/mL NT-Pro-B Natriuret Pep 497 H (<125) pg/mL Total Protein 7.1 (6.3-8.2) g/dL Albumin 4.2 (3.5-5.0) g/dL Globulin 2.9 (1.7-4.1) g/dL Albumin/Globulin Ratio 1.4 (1.0-2.8) Lipase 83 (23-300) U/L Chlamy pneumoniae PCR Not detected (Not Detect) Adenovirus (PCR) Not detected (Not Detect) B.parapertussis DNA PCR Not detected (Not Detecte) Coronavirus OC43 (PCR) Not detected (Not Detect) Coronavirus HKU1 (PCR) Not detected (Not Detect) Coronavirus 229E (PCR) Not detected (Not Detect) SARS-CoV-2 (PCR) Not detected (Not Detecte) Coronavirus NL63 (PCR) Not detected (Not Detect) Human Metapneumovir PCR Not detected (Not Detect) Influenza Type A (PCR) Not detected (Not Detect) Influenza Type B (PCR) Not detected (Not Detect) M. pneumoniae (PCR) Not detected (Not Detect) Parainfluenza 1 (PCR) Not detected (Not Detect) Parainfluenza 2 (PCR) Not detected (Not Detect) Parainfluenza 3 (PCR) Not detected (Not Detect) Parainfluenza 4 (PCR) Not detected (Not Detect) RSV (PCR) Not detected (Not Detect) Entero/Rhino (PCR) Not detected (Not Detect) Imaging Data Chest x-ray: Radiologist's Impression: PROCEDURE: XR CHEST 1V INDICATIONS: short of breath TECHNIQUE: One view of the chest was acquired. COMPARISON: Outside Film, CT, CT CHEST ABDOMEN PELVIS WITH CONTRAST, 10/08/2022, 10:07. [facility], , CHEST 1 VIEW, 05/07/2017, 13:04. FINDINGS: Surgical changes and devices: Numerous wires can be seen overlying the patient. Lungs and pleura: Left perihilar density is seen, which is attributed to posttreatment changes. No focal infiltrates are seen. The lungs are hyperexpanded. Mediastinum: Mediastinal contours appear normal. Heart size is normal. Atherosclerotic calcification of the aortic arch is noted. Bones and chest wall: No suspicious bony lesions. Overlying soft tissues appear unremarkable. IMPRESSION: The lungs are hyperexpanded. No focal infiltrate is seen. Apparent posttreatment changes seen involving the left perihilar region. CTA - brain/neck: Radiologist's Impression: PROCEDURE: CT ANGIO CHEST PE PROTOCOL INDICATIONS: Chest pain, shortness of breath, tachycardia TECHNIQUE: After the administration of intravenous contrast, 2 mm thick sections acquired from the pulmonary apices to the posterior costophrenic angles. 3-dimensional maximum intensity projection (MIP) coronal and sagittal reformats were then acquired through the thorax. For radiation dose reduction, the following was used: automated exposure control, adjustment of mA and/or kV according to patient size. COMPARISON: None. FINDINGS: Image quality: Excellent. Pulmonary arteries: Pulmonary arteries are normal in size, and demonstrate no intraluminal filling defects to suggest central pulmonary embolism. Lungs and pleura: Moderately severe emphysematous changes. Posteromedial left lower lobe consolidative change. Minor dependent alveolar opacity in the right posterior costophrenic sulcus. Right medial upper lobe spiculated9 soft tissue nodule. Small scar-like area in the posterolateral left right upper lobe, and spiculated nodule in the lateral right upper lobe, 5/87. No pleural effusion or pneumothorax. Mediastinum: Heart size is normal with small to moderate size pericardial effusion, similar compared to prior. Normal caliber aorta and great vessels. No adenopathy. Normal esophagus without hiatal hernia. Bones and chest wall: No suspicious bony lesions. Ribs and thoracic spine appear intact throughout. Thyroid gland has a normal CT appearance. No axillary or supraclavicular adenopathy. Abdomen: Visualized upper abdominal solid organs appear normal in the early arterial phase of enhancement. IMPRESSION: 1. No pulmonary embolus. 2. Moderately severe emphysema. 3. Chronic posteromedial left lower lobe consolidation suggestive of atelectasis although underlying infection or neoplasm is not excluded. 4. Right lateral upper lobe spiculated mass is new and consistent with patient's known new lung cancer. 5. Mildly increased right posterior costophrenic sulcus alveolar opacity, probably atelectasis or gravitational change, though underlying infection is not excluded. ECG Data Attestation: I personally reviewed and interpreted this ECG as follows: Interpretation: Sinus tachycardia Ventricular rate 117 Normal QRS Left axis deviation No ST T wave changes MDM Narrative Medical decision making narrative: After the treatments that he received here in the emergency department he states that he is feeling completely back to normal. He is back on his baseline oxygen at 3 L. his chest x-ray shows no signs of pneumonia. CTA shows no signs of pulmonary embolism. He does know about the finding on the CT scan that potentially could be return of his lung cancer. He is no lower extremity swelling. He is not in heart failure. There was no signs of infection. He thinks that there was an environmental trigger which caused him to become short of breath and then he admits that he became very anxious afterwards. Patient ambulated around the emergency department on his baseline oxygen. He states he feels well enough to go home. No change in any of his medications needed today. He was given return precautions. He expressed understanding and agreement. Discharge Plan Departure Patient Disposition: Home Clinical Impression: Acute exacerbation of chronic obstructive pulmonary disease Instructions: Chronic Obstructive Pulmonary Disease Activity Restrictions/Additional Instructions: Recommend that you continue to take all of your medications as directed. Contact your primary doctor for follow-up. Return to the emergency department for new or worsening symptoms. Prescriptions: No Action Opdivo 100 MG/10 ML solution 1 dose IV EVERY 2 WEEK Qty: 0 famotidine 20 mg Tablet 20 mg PO BID lisinopril 10 mg Tablet 10 mg PO DAILY Centrum Silver 0.4-300-250 mg-mcg-mcg Tablet 1 tab PO QPM warfarin 5 mg tablet 1 dose PO DAILY Patient Comments: TK 1 T PO ONCE D. DOSE VARIES DEPENDING ON YOUR INR LAB RESULT pravastatin 20 mg tablet 20 mg PO BEDTIME Patient Comments: TK 1 T PO Referrals: Juan Jose Mitchell MD [Primary Care Provider] - Stand Alone Forms: Patient Portal/API
--- NOTE | 2023-05-01 21:23 | PC.NURSE ---
amb trial with pulse ox and 3L NC, HR stable 120's O2 96-97%, Dr. Tobias aware
== END 2023-05-01 22:39 | disposition home or self-care (01) ==
PROVIDERS: Emergency Medicine; Emergency Provider Emergency Medicine; PCP Family Medicine
DX: J44.1 Chronic obstructive pulmonary disease with (acute) exacerbation (principal); Z79.899 Other long term (current) drug therapy; Z79.01 Long term (current) use of anticoagulants; Z20.822 Contact with and (suspected) exposure to COVID-19
CPT/HCPCS: 36415; 71045; 71275; 80053; 82550; 83605; 83690; 83880; 84484; 85025; 85379; 87040; 87633; 93005; 94640; 94660; 99284; 99285; J7613; Q9967